=== PATIENT | male | born 1975 | race Caucasian/White ===

== ENCOUNTER 2016-08-14 19:05 | Inpatient (IN) | payer OTHER ==
[2016-08-14] MEDS ORDERED: VANCOMYCIN 1,000 MG in DEXTROSE 5%-WATER - 250 ML IVPB ONE (19:21)
--- NOTE | 2016-08-14 19:21 | PDOC ---
History of Present Illness - General History Source: Patient Exam Limitations: No Limitations <Felicity Short I - Last Filed: 08/14/16 20:01> - General History Source: Patient Exam Limitations: No Limitations - History of Present Illness Initial Comments: 08/14/16 20:00 The patient is a 41 year old male, with a significant past medical history of diabetes and psoriasis, who presents to the emergency department for a wound check revisit and a fever. The patient was present in the ED yesterday for an incision and drainage of a posterior neck abscess. The patient became concerned today when he developed a fever and then came back to the emergency department. PAST MEDICAL HISTORY: no significant history PAST SURGICAL HISTORY: no significant history FAMILY HISTORY: no pertinent history SOCIAL HISTORY: Pt lives with family and is employed. MEDICATIONS: reviewed PCP:Claudia Bautista General: +Fever No weakness, no weight loss HEENT: No change in vision. No sore throat,. No ear pain CardioVascular: No chest pain or shortness of breath Respiratory:No cough, or wheezing. Gastrointestinal: no nausea, vomiting, diarrhea or constipation, No rectal bleeding Genitourinary: No dysuria, hematuria, or frequency Musculoskeletal: No joint or muscle pain or swelling Neurologic: No headache, vertigo, dizziness or loss of consciousness Psychiatric: no depression Skin: + Status post incision and drainage of posterior neck abscess No rashes or easy bruising Endocrine: no increased thirst or abnormal weight change Allergic: no skin or latex allergy All other systems reviewed and normal GENERAL: The patient is awake, alert, and fully oriented, in no acute distress. HEAD: +Posterior scalp dressing removed, there is no active bleeding at this time. Area of the abscess cavity is red and hot with some mild to moderate soft tissue swelling. Packing was removed, there is no purulent drainage from the wound at this time. Neck is supple. There are no meningeal signs. EYES: Pupils equal, round and reactive to light, extraocular movements intact, sclera anicteric, conjunctiva clear. EXTREMITIES: Normal range of motion, no edema. NEUROLOGICAL: Normal speech, normal gait. PSYCH: Normal mood, normal affect. SKIN: Warm, Dry, normal turgor, no rashes or lesions noted. <Greer Aragon - Last Filed: 08/14/16 20:39> - General Chief Complaint: Revisit,Wound Recheck Stated Complaint: ABSCESS OF NECK Time Seen by Provider: 08/14/16 19:14 Past History - Past Medical History Diabetes: Yes - Psycho/Social/Smoking Cessation Hx Anxiety: No Suicidal Ideation: No Smoking History: Never smoked Hx Alcohol Use: Yes (RARE) Drug/Substance Use Hx: No Substance Use Type: None <Felicity Short I - Last Filed: 08/14/16 20:01> <Greer Aragon - Last Filed: 08/14/16 20:39> - Past Medical History Allergies/Adverse Reactions: Allergies Allergy/AdvReac Type Severity Reaction Status Date / Time No Known Allergies Allergy Verified 08/13/16 16:45 Home Medications: Ambulatory Orders Acetaminophen [Pain Reliever] 1,000 mg PO ONCE 08/13/16 Doxycycline Hyclate [Vibramycin] 100 mg PO BID 08/13/16 Gabapentin [Neurontin] 300 mg PO DAILY 08/13/16 Gabapentin [Neurontin] 600 mg PO HS 08/13/16 Glyburide [Diabeta -] 5 mg PO DAILY@0700 08/13/16 Metformin HCl 500 mg PO DAILY 08/13/16 Oxycodone HCl/Acetaminophen [Percocet 5-325 mg Tablet -] 1 tab PO TID PRN #12 tablet MDD 3 08/13/16 *Physical Exam - Vital Signs Last Vital Signs Temp Pulse Resp BP Pulse Ox 99.9 F H 140 H 16 178/96 100 08/14/16 19:07 08/14/16 19:07 08/14/16 19:07 08/14/16 19:07 08/14/16 19:07 <Felicity Short I - Last Filed: 08/14/16 20:01> - Vital Signs Last Vital Signs Temp Pulse Resp BP Pulse Ox 99.9 F H 140 H 16 178/96 100 08/14/16 19:07 08/14/16 19:07 08/14/16 19:07 08/14/16 19:07 08/14/16 19:07 <Greer Aragon - Last Filed: 08/14/16 20:39> ED Treatment Course - LABORATORY CBC & Chemistry Diagram: 08/14/16 19:10 08/14/16 19:10 <Felicity Short I - Last Filed: 08/14/16 20:01> - LABORATORY CBC & Chemistry Diagram: 08/14/16 19:10 08/14/16 19:10 - ADDITIONAL ORDERS Additional order review: Laboratory Results 08/14/16 19:10 Sodium 127 L Potassium 4.5 Chloride 96 L Carbon Dioxide 24 Anion Gap 7 L BUN 17 D Creatinine 1.0 D Creat Clearance w eGFR > 60 Random Glucose 415 H* D Calcium 9.1 Total Bilirubin 0.6 D AST 16 D ALT 23 Alkaline Phosphatase 96 H Total Protein 7.3 Albumin 3.7 08/14/16 19:10 RBC 4.53 MCV 86.7 MCHC 33.8 RDW 12.2 MPV 11.9 H Neutrophils % 79.4 Lymphocytes % 8.7 D Monocytes % 7.7 Eosinophils % 0.5 Basophils % 3.7 H - Medications Given in the ED: ED Medications Discontinued Medications Generic Name Dose Route Start Last Admin Trade Name Freq PRN Reason Stop Dose Admin Piperacillin Sod/Tazobactam 100 mls @ 200 mls/hr 08/14/16 19:22 08/14/16 19:40 Sod 4.5 gm/ Dextrose IVPB 08/14/16 19:51 200 mls/hr ONCE ONE Administration Protocol <Greer Aragon - Last Filed: 08/14/16 20:39> Medical Decision Making - Medical Decision Making 08/14/16 20:[address] Delfino Irvin at [phone]. <Greer Aragon - Last Filed: 08/14/16 20:39> *DC/Admit/Observation/Transfer - Discharge Dispostion Admit: Yes <Felicity Short I - Last Filed: 08/14/16 20:01> - Attestations Scribe Attestion: 08/14/16 20:01 Documentation prepared by XIOMARA Carrizales, acting as medical delivery driver for Felicity Short MD. <Greer Aragon - Last Filed: 08/14/16 20:39> Diagnosis at time of Disposition: Neck abscess, Hyperglycemia Fever Qualifiers: Fever type: unspecified Qualified Code(s): R50.9 - Fever, unspecified - Discharge Dispostion Condition at time of disposition: Good - Referrals Referrals: Canelo Bautista [Primary Care Provider] -
[2016-08-14] MEDS ORDERED: PIPERACILLIN/TAZOB 4.5 GM 4.5 GM in DEXTROSE 5%-WATER - 100 ML IVPB ONE (19:22)
[2016-08-14] MEDS ORDERED: PIPERACILLIN/TAZOBACTAM 4.5 GM VIAL IVPB ONE (19:32)
[2016-08-14] MEDS ORDERED: VANCOMYCIN 1,000 MG VIAL (RESTRICTED TO ID ONLY) ONE (19:33)
[2016-08-14 19:51] LABS: BASOPHIL 3.7 % (0-2.0); EOSINOPHIL 0.5 % (0-4.5); MCH 29.3 pg (25.7-33.7); MCHC 33.8 g/dl (32.0-35.9); MEAN CELL VOLUME 86.7 fl (80-96); MEAN PLT VOLUME 11.9 fl (7.5-11.1); NEUTROPHILS 79.4 % (42.8-82.8); PLATELET COUNT 234 K/MM3 (134-434); RDW 12.2 % (11.9-15.9); WHITE BLOOD COUNT 13.7 K/mm3 (4.0-10.0)
[2016-08-14 19:56] LABS: ALBUMIN 3.7 g/dl (3.5-5.0); ALK PHOS 96 U/L (32-92); ANION GAP 7 (8-16); BILIRUBIN,TOTAL 0.6 mg/dl (0.2-1.0); CALCIUM 9.1 mg/dl (8.4-10.2); CO2 24 mmol/L (22-28); SGOT/AST 16 U/L (10-42); SGPT/ALT 23 U/L (10-40); TOT PROT 7.3 g/dl (6.4-8.3)
[2016-08-14 19:57] LABS: GLUCOSE,RANDOM 415 mg/dl (74-106)
[2016-08-14] MEDS ORDERED: INSULIN REGULAR HUMAN 100 UNITS/ML *VIAL IVPUSH ONE (19:57)
[2016-08-14] MEDS ORDERED: INSULIN REGULAR HUMAN 100 UNITS/ML *VIAL ONE (20:04)
[2016-08-14] MEDS ORDERED: ACETAMINOPHEN 325 MG TABLET (FP) PO PRN (21:37)
[2016-08-14] MEDS ORDERED: ONDANSETRON 4 MG/2 ML VIAL IVPB PRN (21:37)
--- NOTE | 2016-08-14 21:46 | HP ---
Admitting History and Physical - Admission Chief Complaint: neck abscess History of Present Illness: 41 year old male, with a hx of diabetes and psoriasis, who presents to the emergency department for a wound check revisit and a fever. The patient reports he developed abscess to his neck last week teus and saw his anaesthetic technician who gave him doxycyline for infected follicle. The area to his neck got worse and he came to [facility] ER yesterday and had I and D by Dr. Irvin. He reports that the wound began bleeding profusely last night. He reports having T 101 at home today and took Advil which relieved it. He reports mild stiffness to the Left side of his neck but is able to move it through full arom. he denies any sob, chest pain, nausea, vomiting, diarrhea, numbness, dizziness, CRUZ, vision loss, spinal pain. PMH/PSH- DM, psoriasis Social- works as senior security analyst, denies alcohol, tobacco, rec drugs Famhx- mom- dm, dad- cad, dm PCP- Dr omalley Ros negative except for hpi Physical General- obese, in nad Hent- neck abscess, kevin, trachea midline, no pharyngeal erythema or exudates Resp- no cough, no cyanosis, no accessory muscle use, lungs ctab, no ronchi, no wheeze Cards-s1s2 heard, no rubs, tachy, no murmurs, +1 pitting edema Skin- psoriatic skin, swelling and redness to nape of neck, mild TTP to left posterior neck, no crepitus felt, 2 small incisions noted to nape area Psych- cooperative, no agitation Neuro- cn2-12 grossly intact, speech clear, no seizures Musk- normal arom bue/ble, no back pain Gi- obese abdomen, no rigidity, no masses, no rebound, no guarding Prob list DM Sepsis neck abscess, cellulitis Hyponatremic Psoriasis imaging CT neck pending ecg reviewed A/P 41 year old male, with a hx of diabetes and psoriasis, who presents to the emergency department for a wound check revisit and a fever admitted for eval of their emergent condition. 1. Post Neck abscess/cellulitis S/P Incision and drainage on neck abscess performed by Dr. Irvin in [facility] ER Lactic elevated Started on vanc and zosyn in er Id consult Plastic consult- Dr. Irvin Continue zosyn and vanc CT neck pending pain control Local wound care FU blood cultures 2. DM uncontrolled? CHeck a1c F/S monitoring SSI 3. Psoriasis will bring in home meds 4. Hyponatremia, likely hyperglycemic effect Corrected ~132 Monitor labs check serum osm DVTprophy oob, scds, hep sq fen diabetic dispo- requires >2mn stay for neck abscess History Source: Patient Limitations to Obtaining History: No Limitations - Smoking History Smoking history: Never smoked - Alcohol/Substance Use Hx Alcohol Use: Yes (RARE) Home Medications - Allergies Allergies/Adverse Reactions: Allergies Allergy/AdvReac Type Severity Reaction Status Date / Time No Known Allergies Allergy Verified 08/13/16 16:45 - Home Medications Home Medications: Ambulatory Orders Acetaminophen [Pain Reliever] 1,000 mg PO ONCE 08/13/16 Doxycycline Hyclate [Vibramycin] 100 mg PO BID 08/13/16 Gabapentin [Neurontin] 300 mg PO DAILY 08/13/16 Gabapentin [Neurontin] 600 mg PO HS 08/13/16 Glyburide [Diabeta -] 5 mg PO DAILY@0700 08/13/16 Metformin HCl 500 mg PO DAILY 08/13/16 Oxycodone HCl/Acetaminophen [Percocet 5-325 mg Tablet -] 1 tab PO TID PRN #12 tablet MDD 3 08/13/16 Physical Examination Vital Signs: Vital Signs Temperature 99.9 F H 08/14/16 19:07 Pulse Rate 140 H 08/14/16 19:07 Respiratory Rate 16 08/14/16 19:07 Blood Pressure 178/96 08/14/16 19:07 O2 Sat by Pulse Oximetry (%) 100 08/14/16 19:07 Visit type - Emergency Visit Emergency Visit: Yes ED Registration Date: 08/14/16 Care time: The patient presented to the Emergency Department on the above date and was hospitalized for further evaluation of their emergent condition. - New Patient This patient is new to me today: Yes Date on this admission: 08/15/16 - Critical Care Critical Care patient: No
[2016-08-14] MEDS ORDERED: SODIUM CHLORIDE 1,000 ML IV SCH (22:00)
[2016-08-14] MEDS ORDERED: INSULIN (NOVOLOG) ASPART 100 UNITS/ML 10ML VIAL ONE (22:53)
[2016-08-14] MEDS: HEPARIN NA (PORCINE) 5,000 UNITS/ML 1ML VIAL SQ SCH (22:58)
[2016-08-14] MEDS: INSULIN SLIDING SCALE (NOVOLOG) 1 VIAL SQ SCH (22:59)
[2016-08-14] MEDS ORDERED: SODIUM CHLORIDE 500 ML IV STA (23:27)
[2016-08-14] MEDS ORDERED: SODIUM CHLORIDE 1,000 ML IV STA (23:28)
[2016-08-14 23:33] VITALS: BMI 44.6
[2016-08-15] MEDS ORDERED: PIPERACILLIN/TAZOB 3.375 GM/50 ML PRE-DOCKED IVPB ONE (04:00)
[2016-08-15] MEDS: HEPARIN NA (PORCINE) 5,000 UNITS/ML 1ML VIAL SQ SCH ×3 (06:51→21:09)
[2016-08-15] MEDS: INSULIN SLIDING SCALE (NOVOLOG) 1 VIAL SQ SCH ×4 (06:52→22:28)
[2016-08-15 08:46] LABS: BASOPHIL 0.2 % (0-2.0); EOSINOPHIL 1.5 % (0-4.5); MCH 28.8 pg (25.7-33.7); MCHC 32.7 g/dl (32.0-35.9); MEAN PLT VOLUME 11.4 fl (7.5-11.1); NEUTROPHILS 75.3 % (42.8-82.8); PLATELET COUNT 172 K/MM3 (134-434); RDW 12.3 % (11.9-15.9); WHITE BLOOD COUNT 9.4 K/mm3 (4.0-10.0)
[2016-08-15 08:58] LABS: ALBUMIN 3.1 g/dl (3.5-5.0); ALK PHOS 78 U/L (32-92); ANION GAP 5 (8-16); BILIRUBIN,TOTAL 0.6 mg/dl (0.2-1.0); CO2 22 mmol/L (22-28); CREATININE 0.7 mg/dl (0.6-1.3); GLUCOSE,RANDOM 228 mg/dl (74-106); SGOT/AST 14 U/L (10-42); SGPT/ALT 20 U/L (10-40); TOT PROT 6.4 g/dl (6.4-8.3)
--- NOTE | 2016-08-15 09:40 | PN ---
Progress Note (short form) - Note Progress Note: patient readmitted last night for fever and pain. CT shows stranding in drainage site c/w cellulitis, but without residual fluid collection. started on IV abx. ID consult seeing pt. On my exam this morning the cellullitic area is much better than on first presentation. The wounds are repacked and have no residual drainage. Pain is much resolved. I recommend continued wound care and ID reassessmanet of abx. f/u with me tue.
--- NOTE | 2016-08-15 09:42 | PN ---
Progress Note (short form) - Note Progress Note: ID consult dictated imp/rccd 41 year old man with DM, psoriasis, obesity developed swelling at the back of his neck after haircut last Tuesday he saw his leasing associate on Tuesday and was started on doxycycline he cam to the ED and had the abscess drained by plastics on 08/13 he returned last night with fever to 101 at home temp 99.[address] scan of neck done and pending (d/w Dr Alcocer- no abscess) fever s/p drainage of neck abscess at site of an infected hair follicle hyponatremia diabetes morbid obesity continue vancomycin (wt based dosing) and rocephin f/u cultures (just received in Micro today)
[2016-08-15] MEDS ORDERED: VANCOMYCIN 1,500 MG in DEXTROSE 5%-WATER - 250 ML IVPB SCH (10:00)
[2016-08-15] MEDS ORDERED: VANCOMYCIN 1 GRAM (PRE-DOCKED) 250 ML IVPB SCH (10:00)
[2016-08-15] MEDS ORDERED: PIPERACILLIN/TAZOB 4.5 GM/100 ML PRE-DOCKED IVPB SCH (10:00)
[2016-08-15] MEDS ORDERED: PIPERACILLIN/TAZOB 3.375 GM 50 ML IVPB SCH (10:00)
[2016-08-15 10:51] LABS: URINE APPEARANCE Clear; URINE BILIRUBIN Negative (NEGATIVE); URINE BLOOD Trace-intact (NEGATIVE); URINE COLOR YELLOW; URINE GLUCOSE (UA) 3+ (NEGATIVE); URINE KETONE 3+ (NEGATIVE); URINE LEUK ESTERASE Trace (NEGATIVE); URINE NITRITE Negative (NEGATIVE); URINE PROTEIN Negative (NEGATIVE); URINE UROBILINOGEN 0.2 E.U/dl (0.2-1.0)
[2016-08-15] MEDS ORDERED: INSULIN (NOVOLOG) ASPART 100 UNITS/ML 10ML VIAL ONE ×3 (11:29→22:28)
--- NOTE | 2016-08-15 11:34 | PN ---
Physical Exam: SUBJECTIVE: Patient seen and examined Reports feeling better,less neck pain, denies fever, chills,CRUZ, dizziness, weakness, abdominal pain, N/V/D. OBJECTIVE: Vital Signs Period Temp Pulse Resp BP Sys/Vasquez Pulse Ox Last 24 Hr 98.4 F-98.4 F 111-122 17-18 130-152/74-93 96-98 GENERAL: The patient is awake, alert, and fully oriented, in no acute distress. HEAD: Normal with no signs of trauma. EYES: PERRL, extraocular movements intact, sclera anicteric, conjunctiva clear. No ptosis. ENT: Ears normal, nares patent, oropharynx clear without exudates, moist mucous membranes. NECK: Trachea midline, full range of motion, supple. LUNGS: Breath sounds equal, clear to auscultation bilaterally, no wheezes, no crackles, no accessory muscle use. HEART: Regular rate and rhythm, S1, S2 without murmur, rub or gallop. ABDOMEN: Soft, nontender, nondistended, normoactive bowel sounds, no guarding, no rebound, no hepatosplenomegaly, no masses. EXTREMITIES: 2+ pulses, warm, well-perfused, no edema. NEUROLOGICAL: Cranial nerves II through XII grossly intact. Normal speech, gait not observed. PSYCH: Normal mood, normal affect. SKIN: Warm, dry, normal turgor, psoriasis rashes, posterior neck incision wild mild drainage,erythema, mild + tenderness, wound packing done by sx Laboratory Results - last 24 hr 08/14/16 08/14/16 08/15/16 22:48 23:05 06:43 WBC RBC Hgb Hct MCV MCHC RDW Plt Count MPV Neutrophils % Lymphocytes % Monocytes % Eosinophils % Basophils % Sodium Potassium Chloride Carbon Dioxide Anion Gap BUN Creatinine Creat Clearance w eGFR POC Glucometer 254 195 Random Glucose Lactic Acid 1.378 Calcium Total Bilirubin AST ALT Alkaline Phosphatase Total Protein Albumin Urine Color Urine Appearance Urine pH Ur Specific [place] Urine Protein Urine Glucose (UA) Urine Ketones Urine Blood Urine Nitrite Urine Bilirubin Urine Urobilinogen Ur Leukocyte Esterase 08/15/16 08/15/16 08/15/16 07:15 07:15 08:00 WBC 9.4 D RBC 4.14 Hgb 11.9 D Hct 36.5 MCV 88.0 MCHC 32.7 RDW 12.3 Plt Count 172 D MPV 11.4 H Neutrophils % 75.3 Lymphocytes % 12.7 D Monocytes % 10.3 H Eosinophils % 1.5 D Basophils % 0.2 Sodium 129 L Potassium 3.8 Chloride 102 Carbon Dioxide 22 Anion Gap 5 L BUN 12 D Creatinine 0.7 D Creat Clearance w eGFR > 60 POC Glucometer Random Glucose 228 H D Lactic Acid Calcium 8.0 L Total Bilirubin 0.6 AST 14 ALT 20 Alkaline Phosphatase 78 Total Protein 6.4 Albumin 3.1 L Urine Color Yellow Urine Appearance Clear Urine pH 7.0 Ur Specific [place] 1.015 Urine Protein Negative Urine Glucose (UA) 3+ H Urine Ketones 3+ H Urine Blood Trace-intact Urine Nitrite Negative Urine Bilirubin Negative Urine Urobilinogen 0.2 e.u/dl Ur Leukocyte Esterase Trace Active Medications Generic Name Dose Route Start Last Admin Trade Name Freq PRN Reason Stop Dose Admin Acetaminophen 650 mg 08/14/16 21:37 Tylenol - PO Q4H PRN FEVER OR PAIN Gabapentin 600 mg 08/15/16 22:00 Neurontin - PO HS [facility] Gabapentin 300 mg 08/15/16 11:30 Neurontin - PO DAILY SONJA Glyburide 5 mg 08/15/16 16:30 Diabeta - PO BID@0700,1630 [facility] Heparin Sodium (Porcine) 5,000 unit 08/14/16 23:00 08/15/16 06:51 Heparin - SQ 5,000 unit TID SONJA Administration Sodium Chloride 1,000 mls @ 150 mls/hr 08/14/16 22:00 08/14/16 22:58 Normal Saline - IV 150 mls/hr ASDIR SONJA Administration Vancomycin HCl 1,500 mg/ 500 mls @ 250 mls/hr 08/15/16 11:13 Dextrose IVPB BID [facility] Protocol Insulin Aspart 1 vial 08/14/16 22:00 08/15/16 06:52 Novolog Vial Sliding Scale - SQ Not Given ACHS [facility] Protocol Metformin HCl 500 mg 08/15/16 16:30 Glucophage - PO BID@0700,1630 [facility] Ondansetron HCl 4 mg 08/14/16 21:37 Zofran Injection IVPB Q4H PRN NAUSEA AND/OR VOMITING Oxycodone HCl 5 mg 08/14/16 21:39 Roxicodone - PO Q6H PRN PAIN Blood cultures done, report pending *Imaging CT head/ neck done, report pending EKG- SR ASSESSMENT/PLAN: This is a 41 year old male, with a hx of diabetes and psoriasis, who presents to the emergency department for a wound check revisit and a fever admitted for eval of their emergent condition. * Neck abscess/cellulitis -S/P Incision and drainage on neck abscess performed by Dr. Irvin in [place] [facility] Lactic elevated initially, now normalized - ID input appreciated - will continue Started on Vancomycin-( renal dose and zosyn in er Plastic consult- Dr. Irvin input appreciated CT Head/neck - reports pending pain control Local wound care FU blood cultures - afebrile, leukocytosis resolved *DM- BS mildly elevated - Will continue on home dose Glyburide and Metformin - Hgb Alc ordered -F/S monitoring,SSI - consistent carb diet * Psoriasis will bring in home meds *Hyponatremia, likely hyperglycemic effect vs excessive tap water intake r/O SIADH Corrected ~132 - NA improving slowly - 127>129 -checked serum/urine osmolality - wnl - On IVF * Elevated BP, no hx of HTN ? due to IVF - Ordered Hydralazine PRN - will monitor BP closely * Obesity - weight reduction reinforced *DVTprophy oob, scds, hep sq * FEN: Diabetic Dispo- requires inpt care Visit type - Emergency Visit Emergency Visit: Yes ED Registration Date: 08/14/16 Care time: The patient presented to the Emergency Department on the above date and was hospitalized for further evaluation of their emergent condition. - New Patient This patient is new to me today: Yes Date on this admission: 08/15/16 - Critical Care Critical Care patient: No
[2016-08-15] MEDS: GABAPENTIN 300 MG CAPSULE (FP) PO SCH ×2 (12:13→21:09)
[2016-08-15] MEDS ORDERED: hydrALAZINE HCL 20 MG/ML VIAL IVPUSH PRN (14:38)
--- NOTE | 2016-08-15 15:48 | PN ---
Problem List - Problems (1) Neck abscess Code(s): L02.11 - CUTANEOUS ABSCESS OF NECK
[2016-08-15] MEDS ORDERED: metFORMIN HCL 500 MG TABLET (FP) PO SCH (16:30)
[2016-08-15] MEDS: cefTRIAXone 2 GM/100 ML BAG (PRE-DOCKED) IVPB SCH (17:03)
[2016-08-15] MEDS: glyBURIDE 5 MG TABLET (UD) PO SCH (17:04)
[2016-08-15] MEDS: oxyCODONE HCL 5 MG TABLET PO PRN (21:09)
[2016-08-15] MEDS: VANCOMYCIN 1,500 MG in DEXTROSE 5%-WATER - 500 ML IVPB SCH (21:10)
[2016-08-15] MEDS ORDERED: METOPROLOL TARTRATE 25 MG TABLET (FP) PO ONE (22:37)
[2016-08-15] MEDS ORDERED: SODIUM CHLORIDE 1,000 ML IV SCH (22:37)
--- NOTE | 2016-08-15 22:46 | HOSP ---
Subjective - Review of Symptoms Subjective: Received call from floor rn pt b/p elevated sbp 170s, and HR 120s. Decrease IVF to 75cc/hr D/C hydralazine as it can cause rebound tachy Give 1 dose 25mg lopressor PO Start Norvasc 10mg Daily Check EKG Physical Examination Vital Signs: Vital Signs Temperature 99.2 F 08/15/16 22:15 Pulse Rate 123 H 08/15/16 22:15 Respiratory Rate 17 08/15/16 22:15 Blood Pressure 173/83 08/15/16 22:15 O2 Sat by Pulse Oximetry (%) 99 08/15/16 22:15 Labs: CBC, BMP 08/15/16 07:15 08/15/16 07:15
[2016-08-16] MEDS ORDERED: INSULIN (NOVOLOG) ASPART 100 UNITS/ML 10ML VIAL ONE ×2 (06:35→23:30)
[2016-08-16] MEDS: HEPARIN NA (PORCINE) 5,000 UNITS/ML 1ML VIAL SQ SCH ×3 (06:41→21:28)
[2016-08-16] MEDS: INSULIN SLIDING SCALE (NOVOLOG) 1 VIAL SQ SCH ×4 (06:41→23:32)
[2016-08-16] MEDS: glyBURIDE 5 MG TABLET (UD) PO SCH (06:43)
--- NOTE | 2016-08-16 08:04 | PN ---
Physical Exam: SUBJECTIVE: Patient seen and examined.reports feeling well, reports an improvement in pain to the posterior neck,denies any tactile fever. OBJECTIVE: patient is a 41 year old male, with a past medical history of NIDDM and psoriasis. Patient was admitted from the emergency department for cellulitis and abscess of the posterior neck after failing outpatient antibiotics. Vital Signs Period Temp Pulse Resp BP Sys/Vasquez Pulse Ox Last 24 Hr 98.6 F-99.2 F 108-125 17-20 160-185/83-107 97-100 PHYSICAL EXAMINATION GENERAL: The patient is awake, alert, and fully oriented, in no acute distress. HEAD: Normal with no signs of trauma. EYES: PERRL, extraocular movements intact, sclera anicteric, conjunctiva clear. No ptosis. ENT: Ears normal, nares patent, oropharynx clear without exudates, moist mucous membranes. NECK: Trachea midline, full range of motion, supple. POSTERIOR NECK: incisions x 2 no drainage mild induration, mild erythema noted. LUNGS: Breath sounds equal, clear to auscultation bilaterally, no wheezes, no crackles, no accessory muscle use. HEART: Regular rate and rhythm, S1, S2 without murmur, rub or gallop. ABDOMEN: Soft, nontender, nondistended, normoactive bowel sounds, no guarding, no rebound, no hepatosplenomegaly, no masses. EXTREMITIES: 2+ pulses, warm, well-perfused, no edema. NEUROLOGICAL: Cranial nerves II through XII grossly intact. Normal speech, gait not observed. PSYCH: Normal mood, normal affect. SKIN: Warm, dry, normal turgor, no rashes or lesions noted Laboratory Results - last 24 hr CBC WBC 12.5 K/mm3 (4.0-10.0) H D 08/16/16 07:33 RBC 4.57 M/mm3 (4.00-5.60) 08/16/16 07:33 Hgb 13.2 GM/dl (11.7-16.9) D 08/16/16 07:33 Hct 40.2 % (35.4-49) 08/16/16 07:33 MCV 87.9 fl (80-96) 08/16/16 07:33 MCHC 32.8 g/dl (32.0-35.9) 08/16/16 07:33 RDW 12.0 % (11.9-15.9) 08/16/16 07:33 Plt Count 248 K/MM3 (134-434) D 08/16/16 07:33 MPV 10.8 fl (7.5-11.1) 08/16/16 07:33 Neutrophils % 79.8 % (42.8-82.8) 08/16/16 07:33 Lymphocytes % 12.2 % (8-40) 08/16/16 07:33 Monocytes % 7.0 % (3.8-10.2) 08/16/16 07:33 Eosinophils % 0.6 % (0-4.5) 08/16/16 07:33 Basophils % 0.4 % (0-2.0) 08/16/16 07:33 CMP Sodium 128 mmol/L (136-145) L 08/16/16 07:33 Potassium 3.7 mmol/L (3.5-5.1) 08/16/16 07:33 Chloride 102 mmol/L (98-107) 08/16/16 07:33 Carbon Dioxide 24 mmol/L (22-28) 08/16/16 07:33 Anion Gap 2 (8-16) L 08/16/16 07:33 BUN 10 mg/dl (7-18) 08/16/16 07:33 Creatinine 0.8 mg/dl (0.6-1.3) 08/16/16 07:33 Creat Clearance w eGFR > 60 (>60) 08/15/16 07:15 POC Glucometer 251 UNITS (()) 08/15/16 11:20 Random Glucose 248 mg/dl (74-106) H 08/16/16 07:33 Hemoglobin A1c % 11.1 % (4.8-6.0) H 08/15/16 08:00 Serum Osmolality 286 mosm/kg (278-305) 08/15/16 07:15 Lactic Acid 1.378 mmol/L (0.4-2.0) 08/14/16 23:05 Calcium 8.2 mg/dl (8.4-10.2) L 08/16/16 07:33 Total Bilirubin 0.6 mg/dl (0.2-1.0) 08/15/16 07:15 AST 14 U/L (10-42) 08/15/16 07:15 ALT 20 U/L (10-40) 08/15/16 07:15 Alkaline Phosphatase 78 U/L (32-92) 08/15/16 07:15 Total Protein 6.4 g/dl (6.4-8.3) 08/15/16 07:15 Albumin 3.1 g/dl (3.5-5.0) L 08/15/16 07:15 Active Medications Generic Name Dose Route Start Last Admin Trade Name Jayden PRN Reason Stop Dose Admin Acetaminophen 650 mg 08/14/16 21:37 Tylenol - PO Q4H PRN FEVER OR PAIN Amlodipine Besylate 10 mg 08/16/16 10:00 08/16/16 09:16 Norvasc - PO 10 mg DAILY SONJA Administration Ceftriaxone Sodium 2 gm 08/15/16 16:00 08/16/16 09:32 Rocephin 2gm Ivpb (Pre-Docked) IVPB 2 gm DAILY SONJA Administration Protocol Gabapentin 600 mg 08/15/16 22:00 08/15/16 21:09 Neurontin - PO 600 mg HS SONJA Administration Gabapentin 300 mg 08/15/16 12:00 08/16/16 09:31 Neurontin - PO 300 mg DAILY SONJA Administration Heparin Sodium (Porcine) 5,000 unit 08/14/16 23:00 08/16/16 06:41 Heparin - SQ 5,000 unit TID SONJA Administration Vancomycin HCl 1,500 mg/ 500 mls @ 250 mls/hr 08/15/16 11:13 08/16/16 10:41 Dextrose IVPB 250 mls/hr BID SONJA Administration Protocol Sodium Chloride 1,000 mls @ 75 mls/hr 08/15/16 22:37 08/15/16 23:06 Normal Saline - IV 75 mls/hr ASDIR SONJA Administration Insulin Aspart 1 vial 08/14/16 22:00 08/16/16 06:41 Novolog Vial Sliding Scale - SQ 2 units ACHS SONJA Administration Protocol Ondansetron HCl 4 mg 08/14/16 21:37 Zofran Injection IVPB Q4H PRN NAUSEA AND/OR VOMITING Oxycodone HCl 5 mg 08/14/16 21:39 08/15/16 21:09 Roxicodone - PO 5 mg Q6H PRN Administration PAIN Microbiology 08/14/16 19:10 Blood - Peripheral Venous Blood Culture - Preliminary NO GROWTH OBTAINED AFTER 24 HOURS, INCUBATION TO CONTINUE FOR 4 DAYS. 08/14/16 19:10 Blood - Peripheral Venous Blood Culture - Preliminary NO GROWTH OBTAINED AFTER 24 HOURS, INCUBATION TO CONTINUE FOR [address] soft tissue neck w/o contrast: left upper neck subcutaneous edema no discrete fluid collections noted, mild enlarged subcutaneous lymph nodes. EKG- SR ASSESSMENT/PLAN: 1) ID: neck abscess/ cellulitis - blood cultures NTD, pending wound culture - slight leukocytosis, low grade temp noted - continue vancomycin and rocephin 2) endo: niddm w/hyperglycemia - elevated fingersticks noted, d/c metformin & glyburide, start levermir 15 units w/fingersticks achs w/regular insulin sliding scale - pending TSH and t4 3) FEN: hyponatremia - corrected serum sodium 130, likely secondary to hyperglycemia - fluid restriction, repeat bmp in am 4) card: hypertension - elevated b/p, pt started on norvasc, will add loosartan 25mg - strict b/p monitoring f/e/n -diabetic diet ppx heparin oob scd Dispo- requires inpt care Problem List - Problems (1) Diabetes mellitus Code(s): E11.9 - TYPE 2 DIABETES MELLITUS WITHOUT COMPLICATIONS Qualifiers: Diabetes mellitus type: type 2 Diabetes mellitus complication status: with hyperglycemia Diabetes mellitus termite control representative insulin use: unspecified termite control representative insulin use status Qualified Code(s): E11.65 - Type 2 diabetes mellitus with hyperglycemia; Z79.4 - termite control representative (current) use of insulin Visit type - Emergency Visit Emergency Visit: Yes ED Registration Date: 08/14/16 Care time: The patient presented to the Emergency Department on the above date and was hospitalized for further evaluation of their emergent condition. - New Patient This patient is new to me today: No - Critical Care Critical Care patient: No - Discharge Referral Referred to [facility] No
[2016-08-16 08:27] LABS: BASOPHIL 0.4 % (0-2.0); EOSINOPHIL 0.6 % (0-4.5); MCH 28.9 pg (25.7-33.7); MCHC 32.8 g/dl (32.0-35.9); MEAN CELL VOLUME 87.9 fl (80-96); MEAN PLT VOLUME 10.8 fl (7.5-11.1); NEUTROPHILS 79.8 % (42.8-82.8); PLATELET COUNT 248 K/MM3 (134-434); WHITE BLOOD COUNT 12.5 K/mm3 (4.0-10.0)
[2016-08-16 08:34] LABS: CALCIUM 8.2 mg/dl (8.4-10.2); CREATININE 0.8 mg/dl (0.6-1.3)
[2016-08-16] MEDS ORDERED: REFRIGERATED ANITBIOTICS ONE ×3 (09:03→21:47)
[2016-08-16] MEDS: amLODIPine BESYLATE 10 MG TABLET (FP) PO SCH (09:16)
--- NOTE | 2016-08-16 09:18 | PN ---
Progress Note, Physician History of Present Illness: No c/o posterior neck pain No c/o fever/ chills Tolerating antibiotics Wound c/s pending - Current Medication List Current Medications: Active Medications Acetaminophen (Tylenol -) 650 mg PO Q4H PRN PRN Reason: FEVER OR PAIN Amlodipine Besylate (Norvasc -) 10 mg PO DAILY [facility] Ceftriaxone Sodium (Rocephin 2gm Ivpb (Pre-Docked)) 2 gm IVPB DAILY SONJA PRN Reason: Protocol Last Admin: 08/15/16 17:03 Dose: 2 gm Gabapentin (Neurontin -) 600 mg PO HS [facility] Last Admin: 08/15/16 21:09 Dose: 600 mg Gabapentin (Neurontin -) 300 mg PO DAILY [facility] Last Admin: 08/15/16 12:13 Dose: 300 mg Glyburide (Diabeta -) 5 mg PO BID@0700,1630 [facility] Last Admin: 08/16/16 06:43 Dose: 5 mg Heparin Sodium (Porcine) (Heparin -) 5,000 unit SQ TID [facility] Last Admin: 08/16/16 06:41 Dose: 5,000 unit Vancomycin HCl 1,500 mg/ (Dextrose) 500 mls @ 250 mls/hr IVPB BID [facility] PRN Reason: Protocol Last Admin: 08/15/16 21:10 Dose: 250 mls/hr Sodium Chloride (Normal Saline -) 1,000 mls @ 75 mls/hr IV ASDIR [facility] Last Admin: 08/15/16 23:06 Dose: 75 mls/hr Insulin Aspart (Novolog Vial Sliding Scale -) 1 vial SQ ACHS [facility] PRN Reason: Protocol Last Admin: 08/16/16 06:41 Dose: 2 units Ondansetron HCl (Zofran Injection) 4 mg IVPB Q4H PRN PRN Reason: NAUSEA AND/OR VOMITING Oxycodone HCl (Roxicodone -) 5 mg PO Q6H PRN PRN Reason: PAIN Last Admin: 08/15/16 21:09 Dose: 5 mg - Objective Vital Signs: Vital Signs Temperature 98.6 F 08/16/16 06:15 Pulse Rate 108 H 08/16/16 06:15 Respiratory Rate 20 08/16/16 06:15 Blood Pressure 161/96 08/16/16 06:15 O2 Sat by Pulse Oximetry (%) 100 08/16/16 06:15 Constitutional: Yes: No Distress, Obese Cardiovascular: Yes: Regular Rate and Rhythm, S1, S2 Respiratory: Yes: CTA Bilaterally Gastrointestinal: Yes: Normal Bowel Sounds, Soft. No: Tenderness Integumentary: Yes: Other (posterior neck wound no erythema/ drainage) Labs: CBC, BMP 08/16/16 07:33 08/16/16 07:33 Assessment/Plan S/P I&D posterior neck abscess Diabetes mellitus Obesity Await wound c/s Continue vancomycin/ ceftriaxone
[2016-08-16] MEDS: GABAPENTIN 300 MG CAPSULE (FP) PO SCH ×2 (09:31→21:27)
[2016-08-16] MEDS: cefTRIAXone 2 GM/100 ML BAG (PRE-DOCKED) IVPB SCH (09:32)
[2016-08-16] MEDS ORDERED: INSULIN DETEMIR 100 UNITS/ML MDV SQ ONE ×2 (10:00→23:30)
[2016-08-16 10:18] LABS: MAGNESIUM 1.9 mg/dL (1.8-2.4); PHOSPHOROUS 3.6 mg/dl (2.5-4.6)
[2016-08-16] MEDS: VANCOMYCIN 1,500 MG in DEXTROSE 5%-WATER - 500 ML IVPB SCH ×2 (10:41→21:47)
[2016-08-16] MEDS ORDERED: LOSARTAN POTASSIUM 25 MG TABLET PO SCH (13:30)
[2016-08-16] MEDS: LACTOBACILLUS ACIDOPHILUS 1 EACH TAB (FP) PO SCH (14:18)
[2016-08-16 16:02] LABS: THYROID STIMULATING HORMONE 1.33 uIU/ml (0.358-3.74)
[2016-08-16 16:05] LABS: THYROXINE (T4) 9.4 ug/dl (4.5-12.1)
--- NOTE | 2016-08-16 16:44 | EKG ---
Test Reason : Blood Pressure : / mmHG Vent. Rate : 122 BPM Atrial Rate : 122 BPM P-R Int : 156 ms QRS Dur : 066 ms QT Int : 296 ms P-R-T Axes : 056 043 061 degrees QTc Int : 421 ms SINUS TACHYCARDIA NONSPECIFIC T WAVE ABNORMALITY WHEN COMPARED WITH ECG OF 26-APR-2005 09:41, NO SIGNIFICANT CHANGE WAS FOUND Confirmed by MD ARROYO MARJORY ([id number]) on 08/16/2016 4:44:05 PM Referred By: DANIELLE Confirmed By:DEL ARROYO MD
--- NOTE | 2016-08-16 16:44 | EKG ---
Test Reason : Blood Pressure : / mmHG Vent. Rate : 123 BPM Atrial Rate : 123 BPM P-R Int : 152 ms QRS Dur : 080 ms QT Int : 304 ms P-R-T Axes : 060 038 044 degrees QTc Int : 435 ms SINUS TACHYCARDIA NONSPECIFIC T WAVE ABNORMALITY WHEN COMPARED WITH ECG OF 14-AUG-2016 21:47, NO SIGNIFICANT CHANGE WAS FOUND Confirmed by MD ARROYO MARJORY ([id number]) on 08/16/2016 4:43:39 PM Referred By: DR WHEAT Confirmed By:DEL ARROYO MD
--- NOTE | 2016-08-16 16:48 | HOSP ---
Physical Examination Vital Signs: Vital Signs Temperature 98.4 F 08/16/16 14:49 Pulse Rate 109 H 08/16/16 14:49 Respiratory Rate 20 08/16/16 14:49 Blood Pressure 174/81 08/16/16 14:49 O2 Sat by Pulse Oximetry (%) 98 08/16/16 14:49 Labs: CBC, BMP 08/16/16 07:33 08/16/16 07:33 Hospitalist Encounter Assessment: Neck Cellulitis - Discussed with ID, when patient medically cleared for discharged can go on Keflex 1gm TID for 7 days DM II, Uncontrolled - Note change ISS - Levemir 15units HS - Monitor BGM
--- NOTE | 2016-08-16 18:07 | CONS ---
DATE OF CONSULTATION: DATE OF DICTATION: 08/15/2016 REQUESTED BY: Hospitalist service. This is a 41-year-old man with a history of diabetes and psoriasis as well as obesity, who was originally seen in the emergency room on the 13 of August. He had gone to the [facility] the previous Tuesday and had a haircut. Following that, he developed pain at the back of his neck on Tuesday. On Tuesday, he went to the clothes wringer, where he was noted to have an infected follicle. He was started on doxycycline. He had increasing pain in that area and he came to the emergency room on the . He was noted to have no fevers. He had a erythematous indurated mass at the back of his neck. He was seen by Plastics in the emergency room and the area was drained and packed. He was discharged home, to continue his doxycycline. He returned on the with onset of fever of 101 at home. He is currently resting comfortably with no complaints. He had blood cultures drawn in the emergency room and was given vancomycin and Zosyn. His past medical history is notable for diabetes and psoriasis. Family history is notable for diabetes in father and mother. SOCIAL HISTORY: He works a security solutions engineer. There is no history of any alcohol or substance use. Review of systems is as per HPI. He has no shortness of breath, nausea, vomiting, diarrhea, or dysuria. He has some mild neck stiffness but otherwise feels well. He does note he had bleeding from the incision site at home. PHYSICAL EXAMINATION: General: He is an obese man. His BMI is 44.6 with a weight of 347. His temperature is 98.4, pulse of 111, blood pressure 130/93, respiratory rate 18, he is saturating 98% on room air. HEENT: Normocephalic. His eyes are anicteric. Neck: The back of his neck, which I examined with the plastic surgeon, he has 2 incisions which are draining basically bloody material. The plastic surgeon informs me that this looks markedly improved from when he saw him on the . Lungs: Clear to auscultation. Heart: Regular rate and rhythm. Abdomen: Soft, nontender. Extremities: Without edema. Skin: He has scattered psoriatic lesions throughout his body. His white count on admission was 13.7, today is 9.4, hemoglobin 11.9, platelets are 172. His sodium is 129, BUN 12, creatinine 0.9. His LFTs are normal. His urinalysis, urine osmolarity is pending. His lactic acid on admission was 2.3, repeat was 1.3. Blood cultures are pending. Gram stain of the neck, and wound culture done on the , are pending as well. Scans of the head and neck were done. The plastic surgeon reviewed the neck CT and thinks there is no evidence of any abscess. The official reports are pending. In summary, this is a 41-year-old man who developed an abscess at the site of infected hair follicle, with some transient fever. I would suggest we continue vancomycin. Will need to do this weight based, given his weight, and Rocephin. Would follow up cultures which have been received in Micro. Case was discussed with Plastic Surgery and the hospitalist. So his problem list includes fever, status post drainage of neck abscess at the site of an infected hair follicle, hyponatremia in the setting of diabetes, and morbid obesity. PATRICE HUMPHREY M.D. [id number]
[2016-08-16] MEDS: oxyCODONE HCL 5 MG TABLET PO PRN (21:27)
[2016-08-16] MEDS ORDERED: INSULIN DETEMIR 100 UNITS/ML MDV SQ SCH (22:00)
[2016-08-17] MEDS: HEPARIN NA (PORCINE) 5,000 UNITS/ML 1ML VIAL SQ SCH ×3 (06:28→21:22)
[2016-08-17] MEDS ORDERED: INSULIN (NOVOLOG) ASPART 100 UNITS/ML 10ML VIAL ONE ×3 (06:29→16:56)
[2016-08-17] MEDS: INSULIN SLIDING SCALE (NOVOLOG) 1 VIAL SQ SCH ×4 (06:30→21:23)
--- NOTE | 2016-08-17 07:55 | PN ---
Physical Exam: SUBJECTIVE: Patient seen and examined, reports feeling well, denies any tactile fevers. OBJECTIVE: patient is a 41 year old male, with a past medical history of NIDDM and psoriasis. Patient was admitted from the emergency department for cellulitis and abscess of the posterior neck after failing outpatient antibiotics. Vital Signs Period Temp Pulse Resp BP Sys/Vasquez Pulse Ox Last 24 Hr 98 F-98.5 F 109-110 18-20 159-179/80-97 98-98 PHYSICAL EXAMINATION GENERAL: The patient is awake, alert, and fully oriented, in no acute distress. HEAD: Normal with no signs of trauma. EYES: PERRL, extraocular movements intact, sclera anicteric, conjunctiva clear. No ptosis. ENT: Ears normal, nares patent, oropharynx clear without exudates, moist mucous membranes. NECK: Trachea midline, full range of motion, supple. POSTERIOR NECK: incisions x 2 no drainage mild induration, mild erythema noted. LUNGS: Breath sounds equal, clear to auscultation bilaterally, no wheezes, no crackles, no accessory muscle use. HEART: Regular rate and rhythm, S1, S2 without murmur, rub or gallop. ABDOMEN: Soft, nontender, nondistended, normoactive bowel sounds, no guarding, no rebound, no hepatosplenomegaly, no masses. EXTREMITIES: 2+ pulses, warm, well-perfused, no edema. NEUROLOGICAL: Cranial nerves II through XII grossly intact. Normal speech, gait not observed. PSYCH: Normal mood, normal affect. SKIN: Warm, dry, normal turgor, no rashes or lesions noted Laboratory Results - last 24 hr CBC WBC 10.8 K/mm3 (4.0-10.0) H 08/17/16 09:00 RBC 4.54 M/mm3 (4.00-5.60) 08/17/16 09:00 Hgb 13.2 GM/dL (11.7-16.9) 08/17/16 09:00 Hct 40.2 % (35.4-49) 08/17/16 09:00 MCV 88.6 fl (80-96) 08/17/16 09:00 MCHC 32.7 g/dl (32.0-35.9) 08/17/16 09:00 RDW 12.7 % (11.9-15.9) 08/17/16 09:00 Plt Count 226 K/MM3 (134-434) 08/17/16 09:00 MPV 11.0 fl (7.5-11.1) 08/17/16 09:00 Neutrophils % 76.0 % (42.8-82.8) 08/17/16 09:00 Lymphocytes % 13.9 % (8-40) 08/17/16 09:00 Monocytes % 8.5 % (3.8-10.2) 08/17/16 09:00 Eosinophils % 1.1 % (0-4.5) 08/17/16 09:00 Basophils % 0.5 % (0-2.0) 08/17/16 09:00 CMP Sodium 136 mmol/L (136-145) 08/17/16 09:00 Potassium 4.4 mmol/L (3.5-5.1) 08/17/16 09:00 Chloride 100 mmol/L (98-107) 08/17/16 09:00 Carbon Dioxide 24 mmol/L (21-32) 08/17/16 09:00 Anion Gap 12 (8-16) 08/17/16 09:00 BUN 12 mg/dL (7-18) 08/17/16 09:00 Creatinine 0.7 mg/dL (0.7-1.3) 08/17/16 09:00 Creat Clearance w eGFR > 60 (>60) 08/17/16 09:00 POC Glucometer 197 UNITS (()) 08/17/16 06:24 Random Glucose 261 mg/dL (74-106) H 08/17/16 09:00 Hemoglobin A1c % 11.1 % (4.8-6.0) H 08/15/16 08:00 Serum Osmolality 286 mosm/kg (278-305) 08/15/16 07:15 Lactic Acid 1.378 mmol/L (0.4-2.0) 08/14/16 23:05 Calcium 8.9 mg/dL (8.5-10.1) 08/17/16 09:00 Phosphorus 3.5 mg/dL (2.5-4.9) 08/17/16 09:00 Magnesium 1.9 mg/dL (1.8-2.4) 08/17/16 09:00 Total Bilirubin 0.5 mg/dL (0.2-1.0) 08/17/16 09:00 AST 11 U/L (15-37) L 08/17/16 09:00 ALT 27 U/L (12-78) 08/17/16 09:00 Alkaline Phosphatase 94 U/L (45-117) 08/17/16 09:00 Total Protein 6.9 g/dl (6.4-8.2) 08/17/16 09:00 Albumin 3.1 g/dl (3.4-5.0) L 08/17/16 09:00 TSH 1.33 uIU/ml (0.358-3.74) 08/16/16 Unknown Active Medications Generic Name Dose Route Start Last Admin Trade Name Freq PRN Reason Stop Dose Admin Acetaminophen 650 mg 08/14/16 21:37 Tylenol - PO Q4H PRN FEVER OR PAIN Amlodipine Besylate 10 mg 08/16/16 10:00 08/16/16 09:16 Norvasc - PO 10 mg DAILY SONJA Administration Ceftriaxone Sodium 2 gm 08/15/16 16:00 08/16/16 09:32 Rocephin 2gm Ivpb (Pre-Docked) IVPB 2 gm DAILY SONJA Administration Protocol Gabapentin 600 mg 08/15/16 22:00 08/16/16 21:27 Neurontin - PO 600 mg HS SONJA Administration Gabapentin 300 mg 08/15/16 12:00 08/16/16 09:31 Neurontin - PO 300 mg DAILY SONJA Administration Heparin Sodium (Porcine) 5,000 unit 08/14/16 23:00 08/17/16 06:28 Heparin - SQ 5,000 unit TID SONJA Administration Vancomycin HCl 1,500 mg/ 500 mls @ 250 mls/hr 08/15/16 11:13 08/16/16 21:47 Dextrose IVPB 250 mls/hr BID SONJA Administration Protocol Insulin Aspart 1 vial 08/16/16 16:46 08/17/16 06:30 Novolog Vial Sliding Scale - SQ 2 units ACHS SONJA Administration Protocol Insulin Detemir 15 units 08/17/16 22:00 08/16/16 23:33 Levemir Vial SQ 15 units HS SONJA Administration Lactobacillus Acidophilus 1 tab 08/16/16 11:15 08/16/16 14:18 Bacid - PO 1 tab DAILY SONJA Administration Losartan Potassium 25 mg 08/16/16 13:30 08/16/16 14:17 Cozaar - PO 25 mg DAILY SONJA Administration Ondansetron HCl 4 mg 08/14/16 21:37 Zofran Injection IVPB Q4H PRN NAUSEA AND/OR VOMITING Oxycodone HCl 5 mg 08/14/16 21:39 08/16/16 21:27 Roxicodone - PO 5 mg Q6H PRN Administration PAIN Microbiology 08/14/16 19:10 Blood - Peripheral Venous Blood Culture - Preliminary NO GROWTH OBTAINED AFTER 48 HOURS, INCUBATION TO CONTINUE FOR 3 DAYS. 08/14/16 19:10 Blood - Peripheral Venous Blood Culture - Preliminary NO GROWTH OBTAINED AFTER 48 HOURS, INCUBATION TO CONTINUE FOR [address] soft tissue neck w/o contrast: left upper neck subcutaneous edema no discrete fluid collections noted, mild enlarged subcutaneous lymph nodes. EKG- SR ASSESSMENT/PLAN: 1) ID: neck abscess/ cellulitis - blood cultures NTD,wound culture + staph aureus, sensitive to rocephin - leukocytosis improving, pt afebrile. - continue vancomycin and rocephin 2) endo: niddm w/hyperglycemia - elevated fingersticks noted, metformin & glyburide d/c, continue fingersticks achs, w/regular insulin sliding scale, levermir increased to 15units BID - tsh and t4 wnl 3) FEN: hyponatremia - serum sodium 136, resolved, likely secondary to hyperglycemia and dehydration - fluid restriction, repeat bmp in am 4) card: hypertension - elevated b/p, continue norvasc and loosartan 25mg - strict b/p monitoring f/e/n -diabetic diet ppx heparin oob scd Dispo- requires inpt care Problem List - Problems (1) Diabetes mellitus Code(s): E11.9 - TYPE 2 DIABETES MELLITUS WITHOUT COMPLICATIONS Qualifiers: Diabetes mellitus type: type 2 Diabetes mellitus complication status: with hyperglycemia Diabetes mellitus superintendent marine oil terminal insulin use: unspecified shelter insulin use status Qualified Code(s): E11.65 - Type 2 diabetes mellitus with hyperglycemia; Z79.4 - adjunct faculty for medical terminology (current) use of insulin Visit type - Emergency Visit Emergency Visit: Yes ED Registration Date: 08/14/16 Care time: The patient presented to the Emergency Department on the above date and was hospitalized for further evaluation of their emergent condition. - New Patient This patient is new to me today: No - Critical Care Critical Care patient: No - Discharge Referral Referred to [facility] No
[2016-08-17] MEDS: GABAPENTIN 300 MG CAPSULE (FP) PO SCH ×2 (09:21→21:22)
[2016-08-17] MEDS: LOSARTAN POTASSIUM 50 MG TABLET (FP) PO SCH (09:21)
[2016-08-17] MEDS: INSULIN DETEMIR 100 UNITS/ML MDV SQ SCH ×2 (09:21→21:23)
[2016-08-17] MEDS: cefTRIAXone 2 GM/100 ML BAG (PRE-DOCKED) IVPB SCH (09:21)
[2016-08-17] MEDS: amLODIPine BESYLATE 10 MG TABLET (FP) PO SCH (09:21)
[2016-08-17] MEDS: VANCOMYCIN 1,500 MG in DEXTROSE 5%-WATER - 500 ML IVPB SCH (09:22)
[2016-08-17] MEDS: LACTOBACILLUS ACIDOPHILUS 1 EACH TAB (FP) PO SCH (09:22)
[2016-08-17 10:30] LABS: BASOPHIL 0.5 % (0-2.0); EOSINOPHIL 1.1 % (0-4.5); MCHC 32.7 g/dl (32.0-35.9); MEAN CELL VOLUME 88.6 fl (80-96); PLATELET COUNT 226 K/MM3 (134-434); RDW 12.7 % (11.9-15.9); WHITE BLOOD COUNT 10.8 K/mm3 (4.0-10.0)
[2016-08-17 10:46] LABS: ALBUMIN 3.1 g/dl (3.4-5.0); ALK PHOS 94 U/L (45-117); ANION GAP 12 (8-16); BILIRUBIN,TOTAL 0.5 mg/dL (0.2-1.0); CALCIUM 8.9 mg/dL (8.5-10.1); CO2 24 mmol/L (21-32); CREATININE 0.7 mg/dL (0.7-1.3); GLUCOSE,RANDOM 261 mg/dL (74-106); MAGNESIUM 1.9 mg/dL (1.8-2.4); PHOSPHOROUS 3.5 mg/dL (2.5-4.9); SGOT/AST 11 U/L (15-37); SGPT/ALT 27 U/L (12-78); TOT PROT 6.9 g/dl (6.4-8.2)
[2016-08-17] MEDS ORDERED: INSULIN DETEMIR 100 UNITS/ML MDV SQ SCH (22:00)
[2016-08-18] MEDS: HEPARIN NA (PORCINE) 5,000 UNITS/ML 1ML VIAL SQ SCH (06:14)
[2016-08-18] MEDS: INSULIN SLIDING SCALE (NOVOLOG) 1 VIAL SQ SCH (06:14)
--- NOTE | 2016-08-18 09:41 | DS ---
Physical Exam: SUBJECTIVE: Patient seen and examined OBJECTIVE: Vital Signs Period Temp Pulse Resp BP Sys/Vasquez Pulse Ox Last 24 Hr 97.9 F-98.5 F 105-111 18-18 156-179/80-93 97-99 PHYSICAL EXAM GENERAL: The patient is awake, alert, and fully oriented, in no acute distress. HEAD: Normal with no signs of trauma. EYES: PERRL, extraocular movements intact, sclera anicteric, conjunctiva clear. ENT: Ears normal, nares patent, oropharynx clear without exudates, moist mucous membranes. NECK: Trachea midline, full range of motion, supple. LUNGS: Breath sounds equal, clear to auscultation bilaterally, no wheezes, no crackles, no accessory muscle use. HEART: Regular rate and rhythm, S1, S2 without murmur, rub or gallop. ABDOMEN: Soft, nontender, nondistended, normoactive bowel sounds, no guarding, no rebound, no hepatosplenomegaly, no masses. EXTREMITIES: 2+ pulses, warm, well-perfused, no edema. NEUROLOGICAL: Cranial nerves II through XII grossly intact. Normal speech, gait not observed. PSYCH: Normal mood, normal affect. SKIN: Warm, dry, normal turgor, no rashes or lesions noted. LABS Laboratory Results - last 24 hr 08/17/16 08/17/16 08/17/16 09:00 09:00 11:52 WBC 10.8 H RBC 4.54 Hgb 13.2 Hct 40.2 MCV 88.6 MCHC 32.7 RDW 12.7 Plt Count 226 MPV 11.0 Neutrophils % 76.0 Lymphocytes % 13.9 Monocytes % 8.5 Eosinophils % 1.1 Basophils % 0.5 Sodium 136 Potassium 4.4 Chloride 100 Carbon Dioxide 24 Anion Gap 12 BUN 12 Creatinine 0.7 Creat Clearance w eGFR > 60 POC Glucometer 315 Random Glucose 261 H Calcium 8.9 Phosphorus 3.5 Magnesium 1.9 Total Bilirubin 0.5 AST 11 L ALT 27 Alkaline Phosphatase 94 Total Protein 6.9 Albumin 3.1 L 08/17/16 08/17/16 08/18/16 16:46 21:21 06:09 WBC RBC Hgb Hct MCV MCHC RDW Plt Count MPV Neutrophils % Lymphocytes % Monocytes % Eosinophils % Basophils % Sodium Potassium Chloride Carbon Dioxide Anion Gap BUN Creatinine Creat Clearance w eGFR POC Glucometer 271 221 197 Random Glucose Calcium Phosphorus Magnesium Total Bilirubin AST ALT Alkaline Phosphatase Total Protein Albumin HOSPITAL COURSE: Date of Admission:08/14/16 Date of Discharge: 08/18/16 Discharge Summary Reason For Visit: NECK ABSCESS & HYPERGLYCEMIA Current Active Problems Diabetes mellitus (Acute) Fever (Acute) Hyperglycemia (Acute) Neck abscess (Acute) Condition: Improved - Instructions Diet, Activity, Other Instructions: resume regular diabetic diet continue taking keflex as prescribed continue fingersticks with regular insulin coverage before meals and in the evening keep a log of your fingersticks please follow up with your primary care physician within 5 days if fever, chest pain, or shortness of breath develops please return to the emergency department. Referrals: Chani Pearce MD [Staff Physician] - Canelo Bautista [Primary Care Provider] - Disposition: HOME - Home Medications Comprehensive Discharge Medication List: Ambulatory Orders RX: Acetaminophen [Pain Reliever] 1,000 mg PO ONCE 08/13/16 RX: Gabapentin [Neurontin] 300 mg PO DAILY 08/13/16 RX: Gabapentin [Neurontin] 600 mg PO HS 08/13/16 RX: Oxycodone HCl/Acetaminophen [Percocet 5-325 mg Tablet] 1 tab PO TID PRN #12 tablet MDD 3 08/13/16 Cephalexin Monohydrate [Keflex -] 1,000 mg PO Q8H #42 capsule 08/17/16 Insulin (Levemir) [Levemir Flexpen -] 15 units SQ BID #1 pen 08/17/16 Insulin (Novolog) [Novolog Flexpen] 1 units SQ ACHS #1 pen 08/17/16 Miscellaneous Medical Supply [Glucometer Device] 1 each .ROUTE ASDIR #1 kit Miscellaneous Medical Supply [Glucometer Test Strips #100] 1 each .ROUTE ASDIR # 1 box 08/17/16 RX: Amlodipine Besylate [Norvasc -] 10 mg PO DAILY #30 tablet 08/17/16 RX: Lactobacillus Acidophilus [Bacid -] 1 tab PO DAILY tab 08/17/16 RX: Lancets 1 each MC ACHS #120 each 08/17/16 RX: Losartan Potassium [Cozaar -] 50 mg PO DAILY #30 tablet 08/17/16 Problem List - Problems (1) Diabetes mellitus Code(s): E11.9 - TYPE 2 DIABETES MELLITUS WITHOUT COMPLICATIONS Qualifiers: Diabetes mellitus type: type 2 Diabetes mellitus complication status: with hyperglycemia Diabetes mellitus fpc insulin use: unspecified fpc insulin use status Qualified Code(s): E11.65 - Type 2 diabetes mellitus with hyperglycemia; Z79.4 - terminal system operator (current) use of insulin - Discharge Referral Referred to [facility] Med [facility] No
[2016-08-18] MEDS: LOSARTAN POTASSIUM 50 MG TABLET (FP) PO SCH (09:42)
[2016-08-18] MEDS: GABAPENTIN 300 MG CAPSULE (FP) PO SCH (09:42)
[2016-08-18] MEDS: INSULIN DETEMIR 100 UNITS/ML MDV SQ SCH (09:42)
[2016-08-18] MEDS: amLODIPine BESYLATE 10 MG TABLET (FP) PO SCH (09:42)
[2016-08-18] MEDS: cefTRIAXone 2 GM/100 ML BAG (PRE-DOCKED) IVPB SCH (09:43)
[2016-08-18] MEDS: LACTOBACILLUS ACIDOPHILUS 1 EACH TAB (FP) PO SCH (09:43)
[2016-08-18 09:51] VITALS: BP 161/95; PULSE 111; TEMP 98
== END 2016-08-18 12:37 | disposition home or self-care (01) | DRG 603 ==
LOC: FER 19:05 → FM/S 20:27
PROVIDERS: ADMIT Internal Medicine; ATTEND Nurse Practitioner Family
DX: L02.11 Cutaneous abscess of neck (principal); E87.1 Hypo-osmolality and hyponatremia; Z68.41 Body mass index [BMI] 40.0-44.9, adult; E11.65 Type 2 diabetes mellitus with hyperglycemia; Z79.4 Long term (current) use of insulin; I10 Essential (primary) hypertension; E66.01 Morbid (severe) obesity due to excess calories; L40.9 Psoriasis, unspecified; R50.9 Fever, unspecified
CPT/HCPCS: 36415; 70450-TC; 70490-TC; 80048; 80053; 81003; 83036; 83605; 83735; 83930; 83935; 84100; 84436; 84443; 85025; 87040; 93005; 93010; 99282-25; G0480; J1644

== ENCOUNTER 2016-11-23 11:03 | Day surgery (SDC) | payer OTHER ==
[2016-11-23 12:08] VITALS: BMI 43.6
[2016-11-23] MEDS ORDERED: LIDOCAINE HCL 2% JELLY (30 ML/TUBE) TP ONE (12:23)
[2016-11-23 12:57] VITALS: TEMP 97.5
[2016-11-23 15:25] VITALS: BP 137/87; PULSE 83
--- NOTE | 2016-11-24 16:20 | PATH ---
Surgical Pathology Report Patient Name: [facility]CHUY [facility]. Rec. #: [id number] /Age/Gender: 1975 (Age: 41) / M Account: [id number] Location: [facility]-ENDOSCOPY Taken: 11/23/2016 Received: 11/23/2016 Reported: 11/24/2016 Physicians: Shaka Davis M.D. Specimen(s) Received BX ANTRUM Clinical History Pre-evaluation of bariatric surgery Normal EGD Final Diagnosis STOMACH, ANTRUM, BIOPSY: FOCAL MILD CHRONIC GASTRITIS. IMMUNOSTAIN FOR H. PYLORI IS NEGATIVE. Electronically Signed Ji Torrez M.D. Gross Description Received in formalin, labeled "biopsy antrum" is a singh, irregular portion of soft tissue measuring 0.5 cm. in greatest dimension. The specimen is submitted in toto in one cassette. /11/23/2016 saudi11/23/2016
== END 2016-11-23 13:35 | disposition home or self-care (01) ==
LOC: JASU-ENDO 11:03
PROVIDERS: ATTEND Internal Medicine Gastroenterology
PROC: 0DB68ZX Excision of Stomach, Via Natural or Artificial Opening Endoscopic, Diagnostic (ICD-10-PCS; principal; 2016-11-23 12:00)
DX: Z01.818 Encounter for other preprocedural examination (principal); E66.01 Morbid (severe) obesity due to excess calories; E11.9 Type 2 diabetes mellitus without complications; I10 Essential (primary) hypertension
CPT/HCPCS: 88305-TC; 88342-TC